=== PATIENT | male | born 1975 | race Caucasian/White ===

== ENCOUNTER 2018-02-20 12:56 | Inpatient (IN) | payer OTHER ==
[~2018-02-20] VITALS: Ht 185.4 cm; Wt 95.0 kg
[2018-02-20 13:15] VITALS: BP 136/85; PULSE 75; RESP 19; TEMP 98.6; O2SAT 95
[2018-02-20] MEDS ORDERED: SODIUM CHLOR 0.9% 1000 ML INJ 1,000 ML IV ONE (13:15)
[2018-02-20] MEDS ORDERED: MORPHINE SULFATE 4 MG/ML INJ IV PUSH ONE (13:15)
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
[2018-02-20] MEDS ORDERED: HYDROmorphone HCL PF 1 MG/ML VIAL IV PUSH ONE (14:30)
[2018-02-20] MEDS ORDERED: HYDROmorphone HCL PF 2 MG/ML VIAL IV PUSH ONE (14:30)
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
[2018-02-20 14:58] LABS: AUTOMATED NEUTROPHIL # 14.8 TH/MM3 (1.8-7.7); BASOPHIL # 0.1 TH/MM3 (0-0.2); BASOPHIL % 0.3 % (0.0-2.0); EOSINOPHIL # 0.1 TH/MM3 (0-0.4); EOSINOPHIL % 0.4 % (0.0-4.0); HEMATOCRIT 40.1 % (39.0-51.0); HEMOGLOBIN 13.7 GM/DL (13.0-17.0); LYMPH % 4.9 % (9.0-44.0); LYMPHOCYTE # 0.8 TH/MM3 (1.0-4.8); MEAN CELL VOLUME 88.5 FL (80.0-100.0); MEAN CORPUSCULAR HEMOGLOBIN 30.3 PG (27.0-34.0); MEAN CORPUSCULAR HGB CONC 34.2 % (32.0-36.0); MEAN PLATELET VOLUME 8.6 FL (7.0-11.0); MONO % 6.9 % (0.0-8.0); MONOCYTE # 1.2 TH/MM3 (0-0.9); NEUT % 87.5 % (16.0-70.0); PLATELET COUNT 212 TH/MM3 (150-450); RED BLOOD COUNT 4.53 MIL/MM3 (4.50-5.90); RED CELL DISTRIBUTION WIDTH 12.4 % (11.6-17.2); WHITE BLOOD COUNT 16.9 TH/MM3 (4.0-11.0)
[2018-02-20 15:14] LABS: BICARBONATE 21.4 MEQ/L (21.0-32.0); CALCIUM 7.8 MG/DL (8.5-10.1); CREATININE 0.82 MG/DL (0.60-1.30)
[2018-02-20 16:08] LABS: INTERNATIONAL NORMALIZED RATIO 1.1 RATIO; PROTHROMBIN TIME - PATIENT 10.9 SEC (9.8-11.6)
[2018-02-20] MEDS ORDERED: NALOXONE HCL 0.4 MG/ML AMP IV PUSH PRN (16:15)
[2018-02-20] MEDS ORDERED: SENNOSIDES 8.6 MG TAB PO PRN (16:15)
[2018-02-20] MEDS ORDERED: LACTULOSE SYRUP 20 GM/30 ML CUP PO PRN (16:15)
[2018-02-20] MEDS ORDERED: MORPHINE SULFATE 2 MG/ML SYRINGE IV PUSH PRN ×2 (16:15)
[2018-02-20] MEDS ORDERED: MAGNESIUM HYDROXIDE SUSP 30 ML CUP PO PRN (16:15)
[2018-02-20] MEDS ORDERED: BISACODYL 10 MG SUPP RECTAL PRN (16:15)
[2018-02-20] MEDS ORDERED: SODIUM CHLORIDE 0.9% FLUSH 10 ML FLUSH IV FLUSH PRN (16:15)
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
[2018-02-20] MEDS: KETOROLAC TROMETHAMINE 30 MG/ML (IVP) VIAL IV PUSH SCH ×2 (16:56→22:15)
[2018-02-20] MEDS: ENOXAPARIN SODIUM 40 MG/0.4 ML SYRINGE SQ SCH (17:00)
--- NOTE | 2018-02-20 17:02 | RADRPT ---
EXAM DATE: 02/20/2018 4:43 PM EDT AGE/SEX: 42 years / Male INDICATIONS: Left leg pain. CLINICAL DATA: This is the patient's initial encounter. Patient reports that signs and symptoms have been present for 1 day and indicates a pain score of 10/10. MEDICAL/SURGICAL HISTORY: None. None. RADIATION DOSE: 17.63 CTDI (mGy) COMPARISON: [facility], HIP LEFT (AP&LAT 2/3VWS) W AP PELVIS, 02/20/2018.. . TECHNIQUE: Multiple contiguous axial images were acquired using a multirow detector CT scanner witho ut contrast. Multiplanar reconstruction was performed in the sagittal and coronal planes. Using aut omated exposure control and adjustment of the mA and/or kV according to patient size, radiation dose was kept as low as reasonably achievable to obtain optimal diagnostic quality images. FINDINGS: There is an acute fracture involving the proximal metaphysis of the left femur just below the intertr ochanteric line. The distal fracture fragment lies medial to the proximal fracture fragment. There is a lucent lesion involving the fracture site. This lucent lesion measures 3 cm in diameter. There is a thin sclerotic margin surrounding this lesion. No cortical destruction observed. No soft tissue mas s appreciated. No periosteal reaction. The remaining femur is intact. No other lucent lesion observed . Soft tissues are unremarkable. CONCLUSION: 1. 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 Electronically signed by: Ciro Casas MD 02/20/2018 5:01 PM EDT
[2018-02-20 17:09] VITALS: BP 118/70; PULSE 66; RESP 18; TEMP 98; O2SAT 96
[2018-02-20] MEDS: SODIUM CHLOR 0.9% 1000 ML INJ 1,000 ML IV SCH (17:34)
[2018-02-20 19:20] VITALS: BP 125/69; PULSE 82; RESP 18; TEMP 98; O2SAT 95
[2018-02-20] MEDS: HYDROmorphone HCL PF 2 MG/ML VIAL IV PUSH PRN (20:11)
[2018-02-20] MEDS: DOCUSATE SODIUM 50 MG/SENNA 8.6 MG TAB PO SCH (20:17)
[2018-02-20] MEDS: SODIUM CHLORIDE 0.9% FLUSH 10 ML FLUSH IV FLUSH SCH (20:17)
[2018-02-20] MEDS ORDERED: SODIUM CHLORID 0.9% 500 ML IV PRN (21:45)
[2018-02-20] MEDS ORDERED: LACTATED RINGER'S 1000 ML IV PRN (21:45)
[2018-02-20] MEDS ORDERED: POVIDONE IODINE 5% (ANTISEPSIS KIT) 4 APPLICATIONS EACH NARE PRN (21:45)
[2018-02-20] MEDS ORDERED: CHLORHEXIDINE GLUCONATE 2 % 1 PACK (2 CLOTHS) TOPICAL PRN (21:45)
[2018-02-20 23:30] VITALS: BP 124/63; PULSE 71; RESP 18; TEMP 98.1; O2SAT 95
[2018-02-21] MEDS: MORPHINE SULFATE 4 MG/ML INJ IV PUSH PRN ×5 (02:12→20:02)
[2018-02-21] MEDS: SODIUM CHLOR 0.9% 1000 ML INJ 1,000 ML IV SCH ×3 (02:12→22:04)
[2018-02-21 03:35] VITALS: BP 114/62; PULSE 70; RESP 18; TEMP 97.8; O2SAT 95
[2018-02-21] MEDS: KETOROLAC TROMETHAMINE 30 MG/ML (IVP) VIAL IV PUSH SCH ×4 (04:42→23:58)
[2018-02-21 08:00] VITALS: BP 117/75; PULSE 62; RESP 18; TEMP 98.2; O2SAT 96
[2018-02-21] MEDS: DOCUSATE SODIUM 50 MG/SENNA 8.6 MG TAB PO SCH ×2 (09:00→21:00)
[2018-02-21] MEDS: SODIUM CHLORIDE 0.9% FLUSH 10 ML FLUSH IV FLUSH SCH (09:00)
--- NOTE | 2018-02-21 11:31 | OTSOAPIP ---
RECEIVED OCCUPATIONAL THERAPY ORDERS. PATIENT CURRENTLY ON BED REST, LEFT LOWER EXTREMITY IN JEFFERS'S TRACTION. PATIENT IS UNDERGOING SURGERY THIS DATE. WILL HOLD EVALUATION UNTIL S/P SURGERY. WILL REATTEMPT TOMORROW. INTERDISCIPLINARY COMMUNICATION: REVIEWED ELECTRONIC MEDICAL RECORD Therapist: Sharon Mcclure, OTR/L Signature on file
[2018-02-21] MEDS ORDERED: MIDAZOLAM HCL 2 MG/2 ML VIAL ONE (11:52)
[2018-02-21 12:50] VITALS: BP 116/62; PULSE 71; RESP 18; TEMP 98; O2SAT 93
[2018-02-21 13:05] VITALS: BP 120/71; PULSE 58; RESP 20; O2SAT 98
--- NOTE | 2018-02-21 13:09 | RADRPT ---
EXAM DATE: 02/21/2018 12:41 PM EDT AGE/SEX: 42 years / Male INDICATIONS: Left femur pathologic fracture. CLINICAL DATA: This is the patient's initial encounter. Patient reports that signs and symptoms have been present for 1 day and indicates a pain score of 4/10. MEDICAL/SURGICAL HISTORY: None. None. COMPARISON: No prior exams available for comparison. SEDATION TIME (min): 30 BIOPSY SITE: Left bone deep left proximal femur 4mg midazolam (Versed) IV 200mcg fentanyl (Sublimaze) IV DEVICE(S): 16 gauge Temno core biopsy needle One core specimen(s) sent to the laboratory for pathologic evaluation. . . PROCEDURE: CT guided Left bone deep proximal femur biopsy Prior to the procedure informed consent was obtained. Any appropriate prior imaging studies were rev iewed. Using automated exposure control and adjustment of the mA and/or kV according to patient size, radiat ion dose was kept as low as reasonably achievable to obtain optimal diagnostic quality images. DICOM format image data is available electronically for review and comparison. The site was prepped in a sterile fashion. Full sterile technique was used, including cap, mask, nohelia rile gloves and gown and a large sterile sheet. Hand hygiene and 2% chlorhexidine and/or betadine/al cohol prep was utilized per protocol for cutaneous antisepsis. The skin and subcutaneous tissues wer e infiltrated with local anesthetic solution. With CT guidance the previously identified target was localized. Biopsy was performed using the presc ribed needle as above. Adequate hemostasis was obtained with compression at the puncture site. Follow-up CT scan reveals no hemorrhage. The patient tolerated the procedure well and there were no complications. The patient was returned to the Radiology Outpatient Unit in stable condition. FINDINGS: Successful CT-guided 16-gauge core biopsy of the left proximal femoral lytic lesion as described abov e. CONCLUSION: 1. Successful CT guided 16-gauge core biopsy of the left proximal femoral lytic lesion. Electronically signed by: Aldo Chicas MD 02/21/2018 1:08 PM EDT
--- NOTE | 2018-02-21 14:05 | HHI.FPPN ---
Subjective Remarks Patient seen, examined and discussed with the medicine team. He is much more comfortable with traction in place, discomfort with moving but otherwise having difficulty because he is not used to being in bed all the time. is with him, and some people who were staying at [place] resort and help him and his yesterday were touching base. Clarification of the plan, there will be a bone biopsy obtained by interventional radiology first prior to any orthopedic surgery for his femur fracture. This has been completed, pathology pending. Objective Vitals Vital Signs Date Time Temp Pulse Resp B/P (MAP) Pulse Ox O2 Delivery O2 Flow Rate FiO2 02/21/18 12:50 98.0 71 18 116/62 (80) 93 02/21/18 08:00 98.2 62 18 117/75 (89) 96 02/21/18 03:35 97.8 70 18 114/62 (79) 95 02/20/18 23:30 98.1 71 18 124/63 (83) 95 02/20/18 19:20 98.0 82 18 125/69 (87) 95 02/20/18 17:09 98.0 66 18 118/70 (86) 96 I/O 02/20/18 02/20/18 02/20/18 02/21/18 02/21/18 02/21/18 07:00 15:00 23:00 07:00 15:00 23:00 Intake Total 1000 ml 1899 ml Balance 1000 ml 1899 ml Intake Oral 1000 ml IV Total 1000 ml 899 ml # Voids 2 Result Diagram: 02/20/18 1442 02/20/18 1442 Other Results CBC Diagram 02/20/18 14:42 Imaging Last Impressions Bone Biopsy CT 02/21/18 0000 Signed Impressions: CONCLUSION: 1. Successful CT guided 16-gauge core biopsy of the left proximal femoral lyti c lesion. Lower Extremity CT 02/20/18 0000 Signed Impressions: CONCLUSION: 1. 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 Hip and Pelvis X-Ray 02/20/18 0000 Signed Impressions: CONCLUSION: Subtrochanteric fracture of the left femoral shaft with suspected underlying cy stic or lytic lesion indicative of a potential pathologic fracture. Objective Remarks O. CONSTITUTIONAL/GEN: normally nourished, in NAD. Left lower extremity in traction. EYES: conjunctiva normal, PERRLA, EOMI. ENT: Mouth and pharynx normal. NECK: Supple LUNGS: clear A-P, respiratory effort is normal. CARDIOVASCULAR: RR without murmur or gallop. No significant edema. GI/ABD: soft without masses, without organomegaly. NEURO: No focal deficits. SKIN: color normal, no rashes noted. HEME/LYMPH: no bruising, petechia or significant adenopathy MUSC: Toes are warm and sensation is intact on the left. PSYCH/MENTAL STATUS: Alert and oriented x 3. A/P Assessment and Plan 42-year-old male with no major past medical history presenting with: Attending Attestation Patient seen and examined. Case reviewed and discussed with the resident team. Agree with plan of care as discussed with me and documented in the resident note. Problem List: (1) Subtrochanteric fracture of femur ICD Codes: S72.23XA - Displaced subtrochanteric fracture of unspecified femur, initial encounter for closed fracture Status: Acute Plan: X-ray showing subtrochanteric fracture of the femur, no clear history of trauma WBC slightly elevated with neutrophilia, could be stress response -Consulted orthopedics, appreciate assistance -Traction of left lower extremity -To evaluate for surgery -bone biopsy today prior to surgery to rule out pathology that would explain the fracture in a young otherwise healthy patient -Check peripheral smear to rule out leukemia as etiology of fracture -N.p.o. until surgical evaluation -Pain control with Toradol scheduled, morphine for pain scale as needed, Dilaudid as needed for breakthrough Fluids: Normal saline 100 cc/h Electrolytes: Monitor and replace PRN Nutrition: Diet n.p.o. DVT: Lovenox 40 mg daily CODE STATUS: Full code Seen and discussed with Drs. Silver and Connie. Disposition: Admit to inpatient, anticipate discharge in 1-2 days pending surgery. Will likely need assistance arranging follow-up when he goes back home to [place]. Problem Qualifiers (1) Subtrochanteric fracture of femur: Baylee Samaniego MD Feb 21, 2018 14:05
[2018-02-21 16:00] VITALS: BP 158/70; PULSE 77; RESP 16; TEMP 98.8; O2SAT 96
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
[2018-02-21] MEDS: ENOXAPARIN SODIUM 40 MG/0.4 ML SYRINGE SQ SCH (18:09)
[2018-02-21 19:30] VITALS: BP 117/51; PULSE 73; RESP 20; TEMP 98.3; O2SAT 95
[2018-02-22 00:20] VITALS: BP 118/69; PULSE 65; RESP 20; TEMP 98.2; O2SAT 95
[2018-02-22 03:50] VITALS: BP 101/55; PULSE 69; RESP 20; TEMP 98.1; O2SAT 95
[2018-02-22] MEDS: KETOROLAC TROMETHAMINE 30 MG/ML (IVP) VIAL IV PUSH SCH ×4 (04:15→21:46)
[2018-02-22 08:00] VITALS: BP 116/56; PULSE 65; RESP 17; TEMP 97.8; O2SAT 95
--- NOTE | 2018-02-22 08:13 | PD.ORT.PN ---
Subjective Subjective Remarks pain under control. Objective Vitals Vital Signs Date Time Temp Pulse Resp B/P (MAP) Pulse Ox O2 Delivery O2 Flow Rate FiO2 02/22/18 03:50 98.1 69 20 101/55 (70) 95 02/22/18 00:20 98.2 65 20 118/69 (85) 95 02/21/18 19:30 98.3 73 20 117/51 (73) 95 02/21/18 17:48 16 02/21/18 16:00 98.8 77 16 158/70 (99) 96 02/21/18 15:28 16 02/21/18 13:05 58 20 120/71 (87) 98 02/21/18 12:50 98.0 71 18 116/62 (80) 93 I/O 02/21/18 02/21/18 02/21/18 02/22/18 02/22/18 02/22/18 07:00 15:00 23:00 07:00 15:00 23:00 Intake Total 1899 ml 1000 ml 30 ml Output Total 250 ml Balance 1899 ml 1000 ml -220 ml Intake Oral 1000 ml 30 ml IV Total 899 ml 1000 ml Output Urine Total 250 ml # Voids 2 Result Diagram: 02/20/18 1442 02/20/18 1442 Objective Remarks in bed, nad, traction in place thigh soft neg homans nvi Assessment & Plan Assessment and Plan 42-year-old gentleman with no significant past medical history with pathologic left subtrochanteric femur fracture Radiographs and CT reviewed with the patient. I explained to the patient my concern regarding his pathologic femur fracture. I did explain to the patient that most of the features of the lesion do appear benign, however, I would like to ensure that this is not a malignancy prior to fixing his femur. I discussed with interventional radiology the option of a CT-guided biopsy of the lytic lesion. This has been performed today as the patient was already n.p.o. We will await these results. Should the biopsy be negative for malignancy, he would benefit from intramedullary nail of his left subtrochanteric femur fracture. However, I did discuss with the patient that should there be suspicion or verification of malignancy, he would likely need to be transferred to a oncology center for definitive treatment. He will remain in Kraft's traction at this time. I did discuss with the patient that it can take a couple of days for pathology results to return. Patient will be placed on Lovenox for DVT prophylaxis. awaiting pathology results Kamran Quan Feb 22, 2018 08:13
[2018-02-22] MEDS: MORPHINE SULFATE 4 MG/ML INJ IV PUSH PRN ×4 (10:19→21:45)
[2018-02-22] MEDS: DOCUSATE SODIUM 50 MG/SENNA 8.6 MG TAB PO SCH ×2 (10:25→21:45)
[2018-02-22] MEDS: SODIUM CHLORIDE 0.9% FLUSH 10 ML FLUSH IV FLUSH SCH ×3 (10:27→21:46)
[2018-02-22] MEDS: SODIUM CHLOR 0.9% 1000 ML INJ 1,000 ML IV SCH ×2 (10:29→18:04)
--- NOTE | 2018-02-22 10:48 | OTSOAPIP ---
PATIENT DID NOT HAVE SURGICAL INTERVENTION YESTERDAY. PATIENT IS S/P CT-GUIDED BIOPSY OF THE LYTIC LESION. LEFT LOWER EXTREMITY REMAINS IN JEFFERS'S TRACTION AWAITING PATHOLOGY RESULT. WILL CONTINUE TO HOLD EVALUATION. WILL REATTEMPT TOMORROW. INTERDISCIPLINARY COMMUNICATION: REVIEWED ELECTRONIC MEDICAL RECORD, SPOKE WITH NURSE GARCIA Therapist: Sharon Mcclure, OTR/L Signature on file
[2018-02-22 12:00] VITALS: BP 115/64; PULSE 63; RESP 18; TEMP 97.9; O2SAT 98
[2018-02-22 13:15] LABS: AUTOMATED NEUTROPHIL # 3.6 TH/MM3 (1.8-7.7); BASOPHIL % 0.6 % (0.0-2.0); EOSINOPHIL # 0.2 TH/MM3 (0-0.4); EOSINOPHIL % 3.3 % (0.0-4.0); HEMATOCRIT 36.9 % (39.0-51.0); HEMOGLOBIN 12.8 GM/DL (13.0-17.0); LYMPH % 23.2 % (9.0-44.0); LYMPHOCYTE # 1.4 TH/MM3 (1.0-4.8); MEAN CELL VOLUME 88.9 FL (80.0-100.0); MEAN CORPUSCULAR HEMOGLOBIN 30.8 PG (27.0-34.0); MEAN CORPUSCULAR HGB CONC 34.7 % (32.0-36.0); MEAN PLATELET VOLUME 8.2 FL (7.0-11.0); MONO % 13.5 % (0.0-8.0); MONOCYTE # 0.8 TH/MM3 (0-0.9); NEUT % 59.4 % (16.0-70.0); PLATELET COUNT 205 TH/MM3 (150-450); RED BLOOD COUNT 4.15 MIL/MM3 (4.50-5.90); RED CELL DISTRIBUTION WIDTH 12.6 % (11.6-17.2); WHITE BLOOD COUNT 6.1 TH/MM3 (4.0-11.0)
--- NOTE | 2018-02-22 14:39 | HHI.FPPN ---
Subjective Remarks 42 yo male with non-traumatic L hip fracture being seen for f/u. Pain well controlled. No numbness of left let. No CP/SOB. (Warren Silver MD R2) Objective Vitals Vital Signs Date Time Temp Pulse Resp B/P (MAP) Pulse Ox O2 Delivery O2 Flow Rate FiO2 02/22/18 12:00 97.9 63 18 115/64 (81) 98 02/22/18 08:00 97.8 65 17 116/56 (76) 95 02/22/18 03:50 98.1 69 20 101/55 (70) 95 02/22/18 00:20 98.2 65 20 118/69 (85) 95 02/21/18 19:30 98.3 73 20 117/51 (73) 95 02/21/18 17:48 16 02/21/18 16:00 98.8 77 16 158/70 (99) 96 02/21/18 15:28 16 I/O 02/21/18 02/21/18 02/21/18 02/22/18 02/22/18 02/22/18 07:00 15:00 23:00 07:00 15:00 23:00 Intake Total 1899 ml 1000 ml 30 ml Output Total 250 ml Balance 1899 ml 1000 ml -220 ml Intake Oral 1000 ml 30 ml IV Total 899 ml 1000 ml Output Urine Total 250 ml # Voids 2 (Warren Silver MD R2) Result Diagram: 02/22/18 1254 02/20/18 1442 Imaging Last Impressions Bone Biopsy CT 02/21/18 0000 Signed Impressions: CONCLUSION: 1. Successful CT guided 16-gauge core biopsy of the left proximal femoral lyti c lesion. Lower Extremity CT 02/20/18 0000 Signed Impressions: CONCLUSION: 1. 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 Hip and Pelvis X-Ray 02/20/18 0000 Signed Impressions: CONCLUSION: Subtrochanteric fracture of the left femoral shaft with suspected underlying cy stic or lytic lesion indicative of a potential pathologic fracture. Objective Remarks O. CONSTITUTIONAL/GEN: normally nourished, in NAD. Left lower extremity in traction. LUNGS: Clear anteriorly, respiratory effort is normal. CARDIOVASCULAR: NRRR without murmur or gallop. No edema. GI/ABD: soft without masses, without organomegaly. NEURO: No focal deficits. SKIN: color normal, no rashes noted. MUSC: Toes are warm and sensation is intact on the left. PSYCH/MENTAL STATUS: Alert and oriented x 3. Procedures CT guided bone biopsy - 02/21/18 Medications and IVs Current Medications Medications (Trade) Dose Ordered Sig/Christi Route Start Time Stop Time Status Last Admin Sodium Chloride 1,000 ml @ 100 mls/hr Q10H IV 02/20/18 16:04 02/22/18 10:29 (NS Flush) 2 ml UNSCH PRN IV FLUSH 02/20/18 16:15 (NS Flush) 2 ml BID IV FLUSH 02/20/18 21:00 02/22/18 10:27 (Lovenox Inj) 40 mg Q24H SQ 02/20/18 17:00 02/21/18 18:09 (Toradol Inj) 30 mg Q6H IV PUSH 02/20/18 16:15 02/25/18 16:14 02/22/18 10:18 (Narcan Inj) 0.4 mg UNSCH PRN IV PUSH 02/20/18 16:15 (Angela-Colace) 1 tab BID PO 02/20/18 21:00 02/22/18 10:25 (Milk Of Magnesia Liq) 30 ml Q12H PRN PO 02/20/18 16:15 (Senokot) 17.2 mg Q12H PRN PO 02/20/18 16:15 (Dulcolax Supp) 10 mg DAILY PRN RECTAL 02/20/18 16:15 (Lactulose Liq) 30 ml DAILY PRN PO 02/20/18 16:15 (Dilaudid Pf Inj) 1 mg Q4H PRN IV PUSH 02/20/18 16:30 02/20/18 20:11 (Morphine Inj) 2 mg Q3H PRN IV PUSH 02/20/18 20:30 02/22/18 13:35 (Morphine Inj) 4 mg Q3H PRN IV PUSH 02/20/18 20:30 02/21/18 15:06 Lactated Ringer's 1,000 ml @ 30 mls/hr Q24H PRN IV 02/20/18 21:45 02/23/18 21:44 Sodium Chloride 500 ml @ 30 mls/hr [id number] PRN IV 02/20/18 21:45 02/23/18 21:44 (Betadine 5% Antisepsis Kit) 1 applic DAY CARE CENTER DIRECTOR PRN EACH NARE 02/20/18 21:45 02/23/18 21:44 (Chlorhexidine 2% Cloth) 3 pack DAY CARE CENTER DIRECTOR PRN TOPICAL 02/20/18 21:45 02/23/18 21:44 (Warren Silver MD R2) A/P Assessment and Plan 42-year-old male with no major past medical history presenting with: (Warren Sivler MD R2) Problem List: (1) Subtrochanteric fracture of femur ICD Codes: S72.23XA - Displaced subtrochanteric fracture of unspecified femur, initial encounter for closed fracture Status: Acute Plan: X-ray showing subtrochanteric fracture of the femur, no clear history of trauma WBC slightly elevated with neutrophilia, could be stress response Peripheral smear consistent with reactive changes -Consulted orthopedics, appreciate assistance -Traction of left lower extremity -Awaiting biopsy results, surgical plan pending final diagnosis -Repeat CBC to confirm resolving leukocytosis -Pain control with Toradol scheduled, morphine for pain scale as needed, Dilaudid as needed for breakthrough Fluids: PO only at the moment Electrolytes: Monitor and replace PRN Nutrition: Diet regular until operative plan known DVT: Lovenox 40 mg daily CODE STATUS: Full code Seen and discussed with Drs. Silver and Connie. Disposition: Admit to inpatient, anticipate discharge in 1-2 days pending surgery. Will likely need assistance arranging follow-up when he goes back home to [place]. (Warren Silver MD R2) Problem List: (1) Subtrochanteric fracture of femur ICD Codes: S72.23XA - Displaced subtrochanteric fracture of unspecified femur, initial encounter for closed fracture Status: Acute Plan: X-ray showing subtrochanteric fracture of the femur, no clear history of trauma WBC slightly elevated with neutrophilia, could be stress response Peripheral smear consistent with reactive changes -Consulted orthopedics, appreciate assistance -Traction of left lower extremity -Awaiting biopsy results, surgical plan pending final diagnosis -Repeat CBC to confirm resolving leukocytosis -Pain control with Toradol scheduled, morphine for pain scale as needed, Dilaudid as needed for breakthrough Fluids: PO only at the moment Electrolytes: Monitor and replace PRN Nutrition: Diet regular until operative plan known DVT: Lovenox 40 mg daily CODE STATUS: Full code Disposition: Admit to inpatient, anticipate discharge in 1-2 days pending surgery. Will likely need assistance arranging follow-up when he goes back home to [place]. (Baylee Samaniego MD) Problem Qualifiers (1) Subtrochanteric fracture of femur: Warren Silver MD R2 Feb 22, 2018 14:39 Baylee Samaniego MD Feb 22, 2018 16:09
[2018-02-22 16:11] VITALS: BP 121/74; PULSE 73; RESP 18; TEMP 98.2; O2SAT 96
[2018-02-22] MEDS: ENOXAPARIN SODIUM 40 MG/0.4 ML SYRINGE SQ SCH (16:53)
[2018-02-22 20:00] VITALS: BP 135/75; PULSE 66; RESP 16; TEMP 98.2; O2SAT 96
[2018-02-23 00:01] VITALS: BP 111/65; PULSE 65; RESP 16; TEMP 98.3; O2SAT 97
[2018-02-23 04:00] VITALS: BP 111/65; PULSE 66; RESP 16; TEMP 97.8; O2SAT 96
[2018-02-23] MEDS: KETOROLAC TROMETHAMINE 30 MG/ML (IVP) VIAL IV PUSH SCH ×4 (04:04→21:50)
[2018-02-23] MEDS: SODIUM CHLOR 0.9% 1000 ML INJ 1,000 ML IV SCH ×2 (04:04→14:04)
[2018-02-23] MEDS: MORPHINE SULFATE 4 MG/ML INJ IV PUSH PRN ×5 (04:09→21:56)
[2018-02-23 08:09] VITALS: BP 105/51; PULSE 66; RESP 18; TEMP 98; O2SAT 96
[2018-02-23] MEDS: DOCUSATE SODIUM 50 MG/SENNA 8.6 MG TAB PO SCH ×2 (09:01→21:56)
[2018-02-23] MEDS: SODIUM CHLORIDE 0.9% FLUSH 10 ML FLUSH IV FLUSH SCH ×2 (09:04→21:57)
--- NOTE | 2018-02-23 10:38 | PD.ORT.PN ---
Subjective Subjective Remarks pain under control. waiting for biopsy results. Objective Vitals Vital Signs Date Time Temp Pulse Resp B/P (MAP) Pulse Ox O2 Delivery O2 Flow Rate FiO2 02/23/18 08:09 98.0 66 18 105/51 (69) 96 02/23/18 04:14 18 02/23/18 04:00 97.8 66 16 111/65 (80) 96 02/23/18 00:01 98.3 65 16 111/65 (80) 97 02/22/18 20:00 98.2 66 16 135/75 (95) 96 02/22/18 16:11 98.2 73 18 121/74 (90) 96 02/22/18 12:00 97.9 63 18 115/64 (81) 98 I/O 02/22/18 02/22/18 02/22/18 02/23/18 02/23/18 02/23/18 07:00 15:00 23:00 07:00 15:00 23:00 Intake Total 30 ml 1300 ml Output Total 250 ml Balance -220 ml 1300 ml Intake Oral 30 ml 1300 ml Output Urine Total 250 ml # Voids 4 3 # Bowel Movements 0 Result Diagram: 02/22/18 1254 02/20/18 1442 Objective Remarks in bed, nad, traction in place thigh soft neg homans nvi Assessment & Plan Assessment and Plan 42-year-old gentleman with no significant past medical history with pathologic left subtrochanteric femur fracture Radiographs and CT reviewed with the patient. I explained to the patient my concern regarding his pathologic femur fracture. I did explain to the patient that most of the features of the lesion do appear benign, however, I would like to ensure that this is not a malignancy prior to fixing his femur. I discussed with interventional radiology the option of a CT-guided biopsy of the lytic lesion. This has been performed today as the patient was already n.p.o. We will await these results. Should the biopsy be negative for malignancy, he would benefit from intramedullary nail of his left subtrochanteric femur fracture. However, I did discuss with the patient that should there be suspicion or verification of malignancy, he would likely need to be transferred to a oncology center for definitive treatment. He will remain in Kraft's traction at this time. I did discuss with the patient that it can take a couple of days for pathology results to return. Patient will be placed on Lovenox for DVT prophylaxis. awaiting pathology results otherwise doing well. Kamran Quan Feb 23, 2018 10:38
--- NOTE | 2018-02-23 10:54 | HHI.FPPN ---
Subjective Remarks Vitals stable. Patient doing well, minimal pain. Passing gas. No bowel movement since admission. Patient states that he usually has bowel movements every 3-4 days. Problems with appetite. Request to know when biopsy results will be in. Objective Vitals Vital Signs Date Time Temp Pulse Resp B/P (MAP) Pulse Ox O2 Delivery O2 Flow Rate FiO2 02/23/18 08:09 98.0 66 18 105/51 (69) 96 02/23/18 04:14 18 02/23/18 04:00 97.8 66 16 111/65 (80) 96 02/23/18 00:01 98.3 65 16 111/65 (80) 97 02/22/18 20:00 98.2 66 16 135/75 (95) 96 02/22/18 16:11 98.2 73 18 121/74 (90) 96 02/22/18 12:00 97.9 63 18 115/64 (81) 98 I/O 02/22/18 02/22/18 02/22/18 02/23/18 02/23/18 02/23/18 07:00 15:00 23:00 07:00 15:00 23:00 Intake Total 30 ml 1300 ml Output Total 250 ml Balance -220 ml 1300 ml Intake Oral 30 ml 1300 ml Output Urine Total 250 ml # Voids 4 3 # Bowel Movements 0 Result Diagram: 02/22/18 1254 02/20/18 1442 Objective Remarks O. CONSTITUTIONAL/GEN: normally nourished, in NAD. Left lower extremity in traction. Trapeze set up situated about the bed. LUNGS: Clear anteriorly, respiratory effort is normal. CARDIOVASCULAR: NRRR without murmur or gallop. No edema. GI/ABD: soft without masses, without organomegaly. NEURO: No focal deficits. SKIN: color normal, no rashes noted. MUSC: Toes are warm and sensation is intact on the left. Left hip significantly swollen and enlarged compared to right. PSYCH/MENTAL STATUS: Alert and oriented x 3. Procedures CT guided bone biopsy - 02/21/18 A/P Assessment and Plan 42-year-old male with no major past medical history presenting with: Discharge Planning Pending bx results and ortho recs Problem List: (1) Subtrochanteric fracture of femur ICD Codes: S72.23XA - Displaced subtrochanteric fracture of unspecified femur, initial encounter for closed fracture Status: Acute Plan: X-ray showing subtrochanteric fracture of the femur, no clear history of trauma WBC slightly elevated with neutrophilia, could be stress response Peripheral smear consistent with reactive changes -Consulted orthopedics, appreciate assistance -Traction of left lower extremity -Awaiting biopsy results, surgical plan pending final diagnosis -Pain control with Toradol scheduled, morphine for pain scale as needed, Dilaudid as needed for breakthrough Fluids: PO only at the moment Electrolytes: Monitor and replace PRN Nutrition: Diet regular until operative plan known DVT: Lovenox 40 mg daily Disposition: Admit to inpatient, anticipate discharge in 1-2 days pending surgery. Will likely need assistance arranging follow-up when he goes back home to [place]. Problem Qualifiers (1) Subtrochanteric fracture of femur: Malorie Rosales MD R1 Feb 23, 2018 10:54
[2018-02-23 12:21] VITALS: BP 114/64; PULSE 68; RESP 17; TEMP 98.4; O2SAT 96
[2018-02-23 15:55] VITALS: BP 109/69; PULSE 66; RESP 18; TEMP 98.4; O2SAT 97
[2018-02-23] MEDS: ENOXAPARIN SODIUM 40 MG/0.4 ML SYRINGE SQ SCH (17:40)
[2018-02-23 20:00] VITALS: BP 134/77; PULSE 75; RESP 17; TEMP 97.9; O2SAT 97
[2018-02-24 00:01] VITALS: BP 129/80; PULSE 54; RESP 16; TEMP 97.5; O2SAT 97
[2018-02-24] MEDS: SODIUM CHLOR 0.9% 1000 ML INJ 1,000 ML IV SCH ×3 (00:04→22:03)
[2018-02-24 04:00] VITALS: BP 121/65; PULSE 56; RESP 17; TEMP 97.8; O2SAT 97
[2018-02-24] MEDS: KETOROLAC TROMETHAMINE 30 MG/ML (IVP) VIAL IV PUSH SCH ×5 (04:11→22:02)
[2018-02-24 08:00] VITALS: BP 121/71; PULSE 61; RESP 10; TEMP 97.8; O2SAT 96
[2018-02-24] MEDS: DOCUSATE SODIUM 50 MG/SENNA 8.6 MG TAB PO SCH ×2 (08:09→20:40)
[2018-02-24] MEDS: MORPHINE SULFATE 4 MG/ML INJ IV PUSH PRN ×4 (08:09→17:18)
[2018-02-24] MEDS: SODIUM CHLORIDE 0.9% FLUSH 10 ML FLUSH IV FLUSH SCH ×2 (09:00→20:38)
--- NOTE | 2018-02-24 09:37 | HHI.FPPN ---
Subjective Remarks Vitals stable. Pain controlled. Bone bx report to result this afternoon. (Malorie Rosales MD R1) Objective Vitals Vital Signs Date Time Temp Pulse Resp B/P (MAP) Pulse Ox O2 Delivery O2 Flow Rate FiO2 02/24/18 08:00 97.8 61 10 121/71 (88) 96 02/24/18 04:00 97.8 56 17 121/65 (83) 97 02/24/18 00:01 97.5 54 16 129/80 (96) 97 02/23/18 20:00 97.9 75 17 134/77 (96) 97 02/23/18 15:55 98.4 66 18 109/69 (82) 97 02/23/18 12:21 98.4 68 17 114/64 (81) 96 I/O 02/23/18 02/23/18 02/23/18 02/24/18 02/24/18 02/24/18 07:00 15:00 23:00 07:00 15:00 23:00 Intake Total 1200 ml Balance 1200 ml Intake Oral 1200 ml # Voids 3 3 3 # Bowel Movements 0 (Malorie Rosales MD R1) Result Diagram: 02/22/18 1254 02/20/18 1442 Objective Remarks O. CONSTITUTIONAL/GEN: normally nourished, in NAD. Left lower extremity in traction. Trapeze set up situated about the bed. LUNGS: Clear anteriorly, respiratory effort is normal. CARDIOVASCULAR: NRRR without murmur or gallop. No edema. GI/ABD: soft without masses, without organomegaly. NEURO: No focal deficits. SKIN: color normal, no rashes noted. MUSC: Toes are warm and sensation is intact on the left. Able to move toes. Good cap refill. Left hip significantly swollen and enlarged compared to right. PSYCH/MENTAL STATUS: Alert and oriented x 3. Procedures CT guided bone biopsy - 02/21/18 (Malorie Rosales MD R1) A/P Assessment and Plan 42-year-old male with no major past medical history presenting with: Discharge Planning Pending bx results and ortho recs. Bone bx results to be out this afternoon, will touch base w/pathology to make sure. DC back home to [place]. (Malorie Rosales MD R1) Attending Attestation Patient seen and examined. Case reviewed and discussed with the resident team. Agree with plan of care as discussed with me and documented in the resident note. (Baylee Samaniego MD) Problem List: (1) Subtrochanteric fracture of femur ICD Codes: S72.23XA - Displaced subtrochanteric fracture of unspecified femur, initial encounter for closed fracture Status: Acute Plan: X-ray showing subtrochanteric fracture of the femur, no clear history of trauma -Consulted orthopedics, appreciate assistance -Traction of left lower extremity -Awaiting biopsy results, surgical plan pending final diagnosis -Pain control with Toradol scheduled, morphine for pain scale as needed, Dilaudid as needed for breakthrough Fluids: PO only at the moment Electrolytes: Monitor and replace PRN Nutrition: Diet regular until operative plan known DVT: Lovenox 40 mg daily (Malorie Rosales MD R1) Problem Qualifiers (1) Subtrochanteric fracture of femur: Malorie Rosales MD R1 Feb 24, 2018 09:37 Baylee Samaniego MD Feb 24, 2018 10:22
[2018-02-24 12:00] VITALS: BP 135/85; PULSE 65; RESP 12; TEMP 98.3; O2SAT 100
[2018-02-24] MEDS: ENOXAPARIN SODIUM 40 MG/0.4 ML SYRINGE SQ SCH (15:07)
[2018-02-24 16:00] VITALS: BP 133/91; PULSE 70; RESP 12; TEMP 98; O2SAT 100
[2018-02-24 19:40] VITALS: BP 142/89; PULSE 66; RESP 18; TEMP 97.6; O2SAT 97
[2018-02-24] MEDS: HYDROmorphone HCL PF 2 MG/ML VIAL IV PUSH PRN (20:38)
[2018-02-25] VITALS: BP 115/77; PULSE 56; RESP 18; TEMP 97.1; O2SAT 96
[2018-02-25] MEDS: KETOROLAC TROMETHAMINE 30 MG/ML (IVP) VIAL IV PUSH SCH ×2 (03:40→11:12)
[2018-02-25 03:45] VITALS: BP 120/80; PULSE 56; RESP 18; TEMP 97.8; O2SAT 98
[2018-02-25] MEDS: SODIUM CHLOR 0.9% 1000 ML INJ 1,000 ML IV SCH ×2 (06:04→16:04)
[2018-02-25 08:00] VITALS: BP 153/94; PULSE 79; RESP 16; RESP 18; TEMP 98; O2SAT 96
[2018-02-25] MEDS: HYDROmorphone HCL PF 2 MG/ML VIAL IV PUSH PRN ×3 (08:47→17:13)
--- NOTE | 2018-02-25 08:55 | PD.ORT.PN ---
Subjective Subjective Remarks Patient resting comfortably this morning. Remains in Kraft's traction. Objective Vitals Vital Signs Date Time Temp Pulse Resp B/P (MAP) Pulse Ox O2 Delivery O2 Flow Rate FiO2 02/25/18 08:00 98.0 79 18 153/94 (113) 96 02/25/18 03:45 97.8 56 18 120/80 (93) 98 02/25/18 00:00 97.1 56 18 115/77 (90) 96 02/24/18 19:40 97.6 66 18 142/89 (106) 97 02/24/18 16:00 98.0 70 12 133/91 (105) 100 02/24/18 12:00 98.3 65 12 135/85 (102) 100 I/O 02/24/18 02/24/18 02/24/18 02/25/18 02/25/18 02/25/18 07:00 15:00 23:00 07:00 15:00 23:00 Intake Total 960 ml 420 ml Output Total 800 ml Balance 160 ml 420 ml Intake Oral 960 ml 420 ml Output Urine Total 800 ml # Voids 3 2 Result Diagram: 02/22/18 1254 Objective Remarks in bed, nad, traction in place thigh soft neg homans nvi Assessment & Plan Assessment and Plan 42-year-old gentleman with no significant past medical history with pathologic left subtrochanteric femur fracture CT-guided biopsy results to moderate no evidence of malignancy. At this time would recommend operative intervention for his left pathologic femur fracture. Plan for intramedullary nail later today. Risks of surgery including but not limited to: Infection, nonunion or malunion, hardware malposition or failure, persistent hip and or thigh pain, neurovascular injury, possible need for further surgery, and other unforeseen comp occasions were all discussed with the patient. At this time he has consented to the procedure. Patient is n.p.o. for surgery later today. Carlie Winslow MD Feb 25, 2018 08:55
[2018-02-25] MEDS: DOCUSATE SODIUM 50 MG/SENNA 8.6 MG TAB PO SCH ×2 (09:00→21:00)
[2018-02-25] MEDS: SODIUM CHLORIDE 0.9% FLUSH 10 ML FLUSH IV FLUSH SCH (09:00)
[2018-02-25 12:00] VITALS: BP 125/80; PULSE 81; RESP 19; TEMP 98.3; O2SAT 98
[2018-02-25] MEDS ORDERED: ePHEDrine/NS 25 MG/5 ML SYRINGE IV ONE (12:00)
[2018-02-25] MEDS ORDERED: LACTATED RINGER'S 1000 ML INJ 1,000 ML IV ONE (12:00)
[2018-02-25] MEDS ORDERED: LIDOCAINE HCL 1% PF 5 ML SYRINGE OTHER ONE (12:00)
[2018-02-25] MEDS ORDERED: PROPOFOL 200 MG/20 ML AMP IV ONE (12:00)
[2018-02-25] MEDS ORDERED: GLYCOPYRROLATE 1 MG/5 ML SYRINGE IV PUSH ONE (12:00)
[2018-02-25] MEDS ORDERED: ONDANSETRON HCL 4 MG/2 ML VIAL IV ONE (12:00)
[2018-02-25] MEDS ORDERED: DEXAMETHASONE SOD PHOS 4 MG/ML VIAL IV ONE (12:00)
[2018-02-25] MEDS ORDERED: NEOSTIGMINE 5 MG/5 ML SYRINGE IV PUSH ONE (12:00)
[2018-02-25] MEDS ORDERED: ROCURONIUM INJ 50 MG/5 ML SYRINGE IV PUSH ONE (12:00)
--- NOTE | 2018-02-25 13:25 | HHI.FPPN ---
Subjective Remarks Patient seen and discussed with Dr. Rosales. Patient and are aware that he will be going to the OR later today for open reduction and internal fixation of his left femoral fracture. He was having some neuropathy symptoms which resolved by lowering the foot of the bed and straightening his legs a little bit more. He declines anything for his bowels until after surgery. His pain is well controlled at this point. Objective Vitals Vital Signs Date Time Temp Pulse Resp B/P (MAP) Pulse Ox O2 Delivery O2 Flow Rate FiO2 02/25/18 08:00 98.0 79 18 153/94 (113) 96 02/25/18 03:45 97.8 56 18 120/80 (93) 98 02/25/18 00:00 97.1 56 18 115/77 (90) 96 02/24/18 19:40 97.6 66 18 142/89 (106) 97 02/24/18 16:00 98.0 70 12 133/91 (105) 100 I/O 02/24/18 02/24/18 02/24/18 02/25/18 02/25/18 02/25/18 06:59 14:59 22:59 06:59 14:59 22:59 Intake Total 960 ml 420 ml Output Total 800 ml Balance 160 ml 420 ml Intake Oral 960 ml 420 ml Output Urine Total 800 ml # Voids 3 2 Result Diagram: 02/22/18 1254 Objective Remarks O. CONSTITUTIONAL/GEN: normally nourished, in NAD. Left lower extremity in traction. Trapeze set up situated about the bed. LUNGS: Clear anteriorly, respiratory effort is normal. CARDIOVASCULAR: NRRR without murmur or gallop. No edema. GI/ABD: soft without masses, without organomegaly. NEURO: No focal deficits. SKIN: color normal, no rashes noted. MUSC: Toes are warm and sensation is intact on the left. Able to move toes. Good cap refill. Left hip significantly swollen and enlarged compared to right. PSYCH/MENTAL STATUS: Alert and oriented x 3. Procedures CT guided bone biopsy - 02/21/18 A/P Assessment and Plan 42-year-old male with no major past medical history presenting with: Discharge Planning Pending bx results and ortho recs. Bone bx results to be out this afternoon, will touch base w/pathology to make sure. DC back home to [place]. Problem List: (1) Subtrochanteric fracture of femur ICD Codes: S72.23XA - Displaced subtrochanteric fracture of unspecified femur, initial encounter for closed fracture Status: Acute Plan: X-ray showing subtrochanteric fracture of the femur, no clear history of trauma -Consulted orthopedics, appreciate assistance -Traction of left lower extremity -Biopsy not suggestive of malignancy -To OR this afternoon for ORIF left hip -Pain control with Toradol scheduled, morphine for pain scale as needed, Dilaudid as needed for breakthrough Fluids: NPO only at the moment Electrolytes: Monitor and replace PRN Nutrition: We will resume regular diet postoperatively. DVT: Lovenox 40 mg daily Problem Qualifiers (1) Subtrochanteric fracture of femur: Baylee Samaniego MD Feb 25, 2018 13:25
[2018-02-25] MEDS: ENOXAPARIN SODIUM 40 MG/0.4 ML SYRINGE SQ SCH (15:42)
[2018-02-25 16:00] VITALS: BP 138/82; PULSE 68; RESP 19; TEMP 98.2; O2SAT 97
[2018-02-25 19:40] VITALS: BP 144/88; PULSE 78; RESP 18; TEMP 98.3; O2SAT 96
[2018-02-25] MEDS ORDERED: ACETAMINOPHEN 1000 MG/100 ML 100 ML IV ONE (20:22)
[2018-02-25] MEDS ORDERED: ceFAZolin 2 GM PREMIX 50 ML ONE (20:28)
[2018-02-25] MEDS ORDERED: VANCOMYCIN HCL 1000 MG VIAL ONE (20:30)
[2018-02-25] MEDS ORDERED: MIDAZOLAM HCL 2 MG/2 ML VIAL ONE (22:37)
--- NOTE | 2018-02-25 23:22 | HHI.PR ---
cc: Carlie Winslow MD Immediate Post Op Note Procedure Date: Feb 25, 2018 Pre Op Diagnosis: Left pathologic subtrochanteric femur fracture Post Op Diagnosis: same Surgeon: Carlie Winslow Insurance Claims Clerk(s): Corbin Nye Procedure: IMN nail L femur Biopsy L femur Complications: none Specimen(s) removed: femoral reamings to pathology for r/o malignancy Estimated blood loss: 200cc Anesthesia: General Drains: None IVF Patient to: PACU Patient Condition: Good Implant/Devices: SEE IMPLANT LOG (if applicable) Date/Time of Procedure: SEE SURGICAL CARE RECORD Carlie Winslow MD Feb 25, 2018 23:22
[2018-02-25] MEDS ORDERED: Post-op Orders (for Pharmacy) XX ONE (23:30)
[2018-02-25] MEDS ORDERED: SODIUM CHLORIDE 0.9% FLUSH 10 ML FLUSH IV FLUSH PRN (23:30)
[2018-02-25] MEDS ORDERED: DO NOT ADM ANY ANTICOAGULANT DRUGS PRN (23:45)
--- NOTE | 2018-02-25 23:46 | RADRPT ---
EXAM DATE: 02/25/2018 11:43 PM EDT AGE/SEX: 42 years / Male INDICATIONS: Femoral nail. CLINICAL DATA: This is the patient's initial encounter. Patient reports that signs and symptoms have been present for 1 day and indicates a pain score of Nonresponsive. MEDICAL/SURGICAL HISTORY: None. None. COMPARISON: No prior exams available for comparison. FINDINGS: The patient has an IM nail across intertrochanteric fracture on the left. There is excellent alignmen t CONCLUSION: Status post IM nail of the femur fracture. Electronically signed by: Inder Mendiola MD 02/25/2018 11:45 PM EDT
[2018-02-25] MEDS ORDERED: *morphine SULFATE 10 MG/ML PERIprocedure ONLY ONE (23:54)
[2018-02-26] MEDS ORDERED: *morphine SULFATE 10 MG/ML PERIprocedure ONLY ONE (00:23)
[2018-02-26] MEDS: SODIUM CHLOR 0.9% 1000 ML INJ 1,000 ML IV SCH (00:27)
[2018-02-26] MEDS: HYDROmorphone HCL PF 2 MG/ML VIAL IV PUSH PRN ×4 (01:06→20:57)
[2018-02-26 04:00] VITALS: BP 124/76; PULSE 87; RESP 18; TEMP 97.6; O2SAT 98
[2018-02-26 07:15] LABS: HEMATOCRIT 38.8 % (39.0-51.0); HEMOGLOBIN 13.1 GM/DL (13.0-17.0); MEAN CELL VOLUME 90.2 FL (80.0-100.0); MEAN CORPUSCULAR HEMOGLOBIN 30.5 PG (27.0-34.0); MEAN CORPUSCULAR HGB CONC 33.8 % (32.0-36.0); MEAN PLATELET VOLUME 8.7 FL (7.0-11.0); PLATELET COUNT 266 TH/MM3 (150-450); RED BLOOD COUNT 4.31 MIL/MM3 (4.50-5.90); RED CELL DISTRIBUTION WIDTH 12.5 % (11.6-17.2); WHITE BLOOD COUNT 8.1 TH/MM3 (4.0-11.0)
--- NOTE | 2018-02-26 07:52 | PD.ORT.PN ---
Subjective Subjective Remarks Patient resting comfortably this morning. States his pain is relatively well controlled. Reports occasional muscle spasms but is able to move his leg with much better pain control. Objective Vitals Vital Signs Date Time Temp Pulse Resp B/P (MAP) Pulse Ox O2 Delivery O2 Flow Rate FiO2 02/26/18 04:00 97.6 87 18 124/76 (92) 98 02/26/18 00:30 79 12 146/80 (102) 95 Room Air 02/26/18 00:15 97.6 85 16 140/80 (100) 97 Room Air 02/26/18 00:00 86 12 148/79 (102) 98 Nasal Cannula 2 02/25/18 23:45 96 12 148/79 (102) 100 Nasal Cannula 2 02/25/18 23:36 97.4 100 12 117/79 (92) 100 Nasal Cannula 2 02/25/18 19:40 98.3 78 18 144/88 (106) 96 02/25/18 16:00 98.2 68 19 138/82 (100) 97 02/25/18 12:00 98.3 81 19 125/80 (95) 98 02/25/18 08:00 98.0 79 18 153/94 (113) 96 I/O 02/25/18 02/25/18 02/25/18 02/26/18 02/26/18 02/26/18 07:00 15:00 23:00 07:00 15:00 23:00 Intake Total 420 ml 2020 ml Output Total 850 ml 150 ml Balance 420 ml -850 ml 1870 ml Intake Oral 420 ml 420 ml Other 1600 ml Output Urine Total 850 ml 0 ml Estimated Blood Loss 150 ml # Voids 2 3 Result Diagram: 02/26/18 0600 Objective Remarks Awake, alert, no acute distress Left lower extremity: Thigh compartments are swollen but remained compressible with no tenderness to palpation. Dressings are intact without significant drainage. Patient is neurovascularly intact distally. Brisk cap refill. Assessment & Plan Assessment and Plan 42-year-old gentleman, postop day 1 status post intramedullary nail of his left subtrochanteric femur fracture 1. Partial weightbearing 50% left lower extremity. 2. Physical therapy for mobilization. 3. Lovenox for DVT prophylaxis 4. Patient is planning to return to [place] upon discharge. I discussed with the patient that he will need to follow up with an orthopedic surgeon within the next 2-3 weeks. Carlie Winslow MD Feb 26, 2018 07:52
[2018-02-26 08:00] VITALS: BP 142/86; PULSE 79; RESP 16; TEMP 97.1; O2SAT 94
[2018-02-26] MEDS: DOCUSATE SODIUM 50 MG/SENNA 8.6 MG TAB PO SCH ×3 (09:00→20:56)
[2018-02-26] MEDS ORDERED: IBUPROFEN 400 MG TAB PO PRN (09:30)
[2018-02-26] MEDS ORDERED: ACETAMINOPHEN/HYDROcodone 325 MG/5 MG TAB PO PRN (09:30)
[2018-02-26] MEDS: SODIUM CHLORIDE 0.9% FLUSH 10 ML FLUSH IV FLUSH SCH ×2 (10:31→20:56)
--- NOTE | 2018-02-26 10:34 | HHI.FPPN ---
Subjective Remarks Postoperative day #1 status post IMN nail left femur for left femur fracture. Patient doing well. No problems eating or drinking. Passing gas. No problems with urination. Has not a bowel movement since . Patient has Angela-Colace scheduled daily since 02/20. However patient has been refusing for the past couple days. States that he would like to go on his own/ naturally. Has minimal pain. Patient is would like medical records to be able to take him to [place]. States that they were told that they may be able to go home tomorrow. (Malorie Rosales MD R1) Objective Vitals Vital Signs Date Time Temp Pulse Resp B/P (MAP) Pulse Ox O2 Delivery O2 Flow Rate FiO2 02/26/18 08:00 97.1 79 16 142/86 (104) 94 02/26/18 04:00 97.6 87 18 124/76 (92) 98 02/26/18 00:30 79 12 146/80 (102) 95 Room Air 02/26/18 00:15 97.6 85 16 140/80 (100) 97 Room Air 02/26/18 00:00 86 12 148/79 (102) 98 Nasal Cannula 2 02/25/18 23:45 96 12 148/79 (102) 100 Nasal Cannula 2 02/25/18 23:36 97.4 100 12 117/79 (92) 100 Nasal Cannula 2 02/25/18 19:40 98.3 78 18 144/88 (106) 96 02/25/18 16:00 98.2 68 19 138/82 (100) 97 02/25/18 12:00 98.3 81 19 125/80 (95) 98 I/O 02/25/18 02/25/18 02/25/18 02/26/18 02/26/18 02/26/18 07:00 15:00 23:00 07:00 15:00 23:00 Intake Total 420 ml 2020 ml Output Total 850 ml 150 ml Balance 420 ml -850 ml 1870 ml Intake Oral 420 ml 420 ml Other 1600 ml Output Urine Total 850 ml 0 ml Estimated Blood Loss 150 ml # Voids 2 3 (Malorie Rosales MD R1) Result Diagram: 02/26/18 0600 Objective Remarks O. CONSTITUTIONAL/GEN: normally nourished, in NAD. Left lower extremity in traction. Trapeze set up situated about the bed. LUNGS: Clear anteriorly, respiratory effort is normal. CARDIOVASCULAR: NRRR without murmur or gallop. No edema. GI/ABD: soft without masses, without organomegaly. NEURO: No focal deficits. SKIN: color normal, no rashes noted. MUSC: Toes are warm and sensation is intact on the left. Able to move toes. Good cap refill. Significant improvement noted in the left hip in terms of swelling. Bandages at the sites of incision at the left hip and the lower lateral knee are clean dry and intact. PSYCH/MENTAL STATUS: Alert and oriented x 3. Procedures CT guided bone biopsy - 02/21/18 Left IM and nail femur -02/25/18 (Malorie Rosales MD R1) A/P Assessment and Plan 42-year-old male with no major past medical history admitted for repair of left subtrochanteric femur fracture. His postoperative day #1 status post IM nail left femur. Bone biopsy to rule out malignancy done on 02/21. Plan to initiate PT today with partial weightbearing 50% of the left lower extremity. Per patient report today, states that he was told that he would be discharged tomorrow. Will await or the recommendations in the meantime. Discharge Planning Plan for possible discharge tomorrow, pending orthopedic recommendations (Malorie Rosales MD R1) Attending Attestation Patient seen and examined. Case reviewed and discussed with the resident team. Agree with plan of care as discussed with me and documented in the resident note. (Baylee Samaniego MD) Problem List: (1) Subtrochanteric fracture of femur ICD Codes: S72.23XA - Displaced subtrochanteric fracture of unspecified femur, initial encounter for closed fracture Status: Acute Plan: X-ray showing subtrochanteric fracture of the femur, no clear history of trauma -Consulted orthopedics, appreciate assistance -Traction of left lower extremity -Biopsy not suggestive of malignancy -PT -Oral pain medications of Motrin and [place] were added today in addition to Dilaudid for breakthrough and morphine in case unable to take p.o. Fluids: P.o. Electrolytes: Monitor and replace PRN Nutrition: Regular diet DVT: Lovenox 40 mg daily (Malorie Rosales MD R1) Problem Qualifiers (1) Subtrochanteric fracture of femur: Malorie Rosales MD R1 Feb 26, 2018 10:34 Baylee Samaniego MD Feb 26, 2018 11:18
[2018-02-26] MEDS: ACETAMINOPHEN/HYDROcodone 325 MG/7.5 MG TAB PO PRN ×3 (10:47→21:00)
[2018-02-26 12:00] VITALS: BP 129/76; PULSE 84; RESP 16; TEMP 98; O2SAT 99
[2018-02-26 16:00] VITALS: BP 125/70; PULSE 88; RESP 16; TEMP 98.3; O2SAT 100
--- NOTE | 2018-02-26 16:28 | HHI.FF ---
Face to Face Verification Diagnosis: (1) Subtrochanteric fracture of femur Physical Therapy Order: Evaluate and Treat Home Health Nursing Order: Medical education Nursing assessment with vital signs I have seen patient Florentin Vázquez on 02/26/18. My clinical findings support the need for the requested home health care services because: Ltd mobility - disease progression High risk of falls I certify that my clinical findings support that this patient is homebound because: Post-op weakness Unsteady gait/balance Warren Silver MD R2 Feb 26, 2018 16:28
[2018-02-26] MEDS ORDERED: WALKER WHEELS/F1 MIS (16:29)
[2018-02-26] MEDS: ENOXAPARIN SODIUM 40 MG/0.4 ML SYRINGE SQ SCH (16:40)
[2018-02-26 20:20] VITALS: BP 122/66; PULSE 87; RESP 18; TEMP 97.7; O2SAT 97
[2018-02-26 23:10] VITALS: BP 124/59; PULSE 83; RESP 18; TEMP 98.6; O2SAT 98
[2018-02-27] MEDS: ACETAMINOPHEN/HYDROcodone 325 MG/7.5 MG TAB PO PRN ×2 (04:21→08:32)
[2018-02-27 04:38] VITALS: BP 135/67; PULSE 83; RESP 18; TEMP 98; O2SAT 97
[2018-02-27 08:00] VITALS: BP 103/59; PULSE 79; RESP 18; TEMP 99; O2SAT 96
[2018-02-27] MEDS: DOCUSATE SODIUM 50 MG/SENNA 8.6 MG TAB PO SCH (08:32)
[2018-02-27] MEDS: SODIUM CHLORIDE 0.9% FLUSH 10 ML FLUSH IV FLUSH SCH (08:36)
[2018-02-27] MEDS ORDERED: IBUP1TAB7 PO (09:22)
[2018-02-27] MEDS ORDERED: OXYC1TAB63 PO (09:22)
--- NOTE | 2018-02-27 09:28 | HHI.FPPN ---
Subjective Remarks Patient states his left hip is more painful than yesterday, thinks it's because he exerted himself too much w/PT. Pain not well controlled w/norco. Told patient we would try percocet today. Vitals stable. Had 1 BM. Appetite good. (Malorie Rosales MD R1) Objective Vitals Vital Signs Date Time Temp Pulse Resp B/P (MAP) Pulse Ox O2 Delivery O2 Flow Rate FiO2 02/27/18 05:32 18 02/27/18 04:38 98.0 83 18 135/67 (89) 97 02/26/18 23:50 Room Air 02/26/18 23:10 98.6 83 18 124/59 (80) 98 02/26/18 21:27 18 02/26/18 20:20 97.7 87 18 122/66 (84) 97 02/26/18 16:00 98.3 88 16 125/70 (88) 100 02/26/18 12:00 98.0 84 16 129/76 (93) 99 I/O 02/26/18 02/26/18 02/26/18 02/27/18 02/27/18 02/27/18 07:00 15:00 23:00 07:00 15:00 23:00 Intake Total 2020 ml 1840 ml 100 ml 460 ml Output Total 150 ml 1400 ml Balance 1870 ml 440 ml 100 ml 460 ml Intake Oral 420 ml 740 ml 360 ml IV Total 1100 ml 100 ml 100 ml Other 1600 ml Output Urine Total 0 ml 1400 ml Estimated Blood Loss 150 ml # Voids 3 2 # Bowel Movements 1 0 (Malorie Rosales MD R1) Result Diagram: 02/26/18 0600 Objective Remarks O. CONSTITUTIONAL/GEN: normally nourished, in NAD. Left lower extremity in traction. Trapeze set up situated about the bed. LUNGS: Clear anteriorly, respiratory effort is normal. CARDIOVASCULAR: NRRR without murmur or gallop. No edema. GI/ABD: soft without masses, without organomegaly. NEURO: No focal deficits. SKIN: color normal, no rashes noted. MUSC: Toes are warm and sensation is intact on the left. Able to move toes. Good cap refill. Significant improvement noted in the left hip in terms of swelling. Bandages at the sites of incision at the left hip and the lower lateral knee are clean dry and intact. PSYCH/MENTAL STATUS: Alert. Procedures CT guided bone biopsy - 02/21/18 Left IM and nail femur -02/25/18 (Malorie Rosales MD R1) A/P Assessment and Plan 42-year-old male with no major past medical history admitted for repair of left subtrochanteric femur fracture. His postoperative day #1 status post IM nail left femur. Bone biopsy to rule out malignancy done on 02/21. Plan to initiate PT today with partial weightbearing 50% of the left lower extremity. Per patient report today, states that he was told that he would be discharged tomorrow. Will await or the recommendations in the meantime. Discharge Planning Dc today (Malorie Rosales MD R1) Attending Attestation Patient seen and examined. Case reviewed and discussed with the resident team. Agree with plan of care as discussed with me and documented in the resident note. (Baylee Samaniego MD) Problem List: (1) Subtrochanteric fracture of femur ICD Codes: S72.23XA - Displaced subtrochanteric fracture of unspecified femur, initial encounter for closed fracture Status: Acute Plan: X-ray showing subtrochanteric fracture of the femur, no clear history of trauma -Consulted orthopedics, appreciate assistance - plan for f/u in 2 weeks - xarelto daily FOR 2 WEEKS - wheeled walker - PT - Motrin and percocet for pain, give for a couple days (Malorie Rosales MD R1) Problem Qualifiers (1) Subtrochanteric fracture of femur: Malorie Rosales MD R1 Feb 27, 2018 09:28 Baylee Samaniego MD Feb 27, 2018 12:18
[2018-02-27] MEDS ORDERED: XARE10TA PO (09:34)
--- NOTE | 2018-02-27 09:36 | HHI.DCPOC ---
Discharge Care Plan Goals to Promote Your Health * To prevent worsening of your condition and complications * To maintain your health at the optimal level XARELTO DAILY FOR 14 DAYS FOR CLOT PREVENTION. FOLLOW UP W/PRIMARY CARE. CONTINUE PHYSICAL THERAPY. Directions to Meet Your Goals Take your medications as prescribed Follow your dietary instruction Follow activity as directed Keep your appointments as scheduled Take your immunizations and boosters as scheduled If your symptoms worsen call your PCP, if no PCP go to Urgent Care Center or Emergency Room Smoking is Dangerous to Your Health. Avoid second hand smoke Call the 24-hour hour crisis hotline for domestic abuse at Malorie Rosales MD R1 Feb 27, 2018 09:36
[2018-02-27] MEDS ORDERED: oxyCODONE/ACETAMINOPHEN 5 MG/325 MG TAB PO PRN (11:00)
[2018-02-27] MEDS ORDERED: oxyCODONE/ACETAMINOPHEN 10 MG/325 MG TAB PO PRN (11:00)
[2018-02-27 12:00] VITALS: BP 126/70; PULSE 76; RESP 18; TEMP 98.8; O2SAT 96
[2018-02-27 13:53] VITALS: RESP 18
--- NOTE | 2018-03-06 13:05 | HHI.DS ---
Discharge Summary Admission Date Feb 20, 2018 at 15:42 Discharge Date: Feb 26, 2018 Admitting Diagnosis Femur fracture (1) Subtrochanteric fracture of femur Plan: X-ray showing subtrochanteric fracture of the femur, no clear history of trauma -Consulted orthopedics, appreciate assistance - plan for f/u in 2 weeks - xarelto daily FOR 2 WEEKS - wheeled walker - PT - Motrin and percocet for pain, give for a couple days ICD Codes: S72.23XA - Displaced subtrochanteric fracture of unspecified femur, initial encounter for closed fracture Status: Acute Consultants Orthopedics - Dr. Winslow Procedures CT guided bone biopsy - 02/21/18 Left IM and nail femur -02/25/18 Brief History 42-year-old male with no major past medical history presenting with left hip pain. He was swimming in the ocean with his , jumping up and down over the waves, when suddenly he felt as though something hit his left leg. He had immediate pain and could not bear weight on the left lower extremity. Lifeguards evaluated him and thought it was a muscle sprain, however he was unable to bear weight after resting and pain did not subside, so he and his got into the car and brought him to the ER. Other than the pain in his left leg he feels well. No history of fractures. Imaging Last Impressions Femur X-Ray 02/25/18 0000 Signed Impressions: CONCLUSION: Status post IM nail of the femur fracture. Bone Biopsy CT 02/21/18 0000 Signed Impressions: CONCLUSION: 1. Successful CT guided 16-gauge core biopsy of the left proximal femoral lyti c lesion. Lower Extremity CT 02/20/18 0000 Signed Impressions: CONCLUSION: 1. 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 Hip and Pelvis X-Ray 02/20/18 0000 Signed Impressions: CONCLUSION: Subtrochanteric fracture of the left femoral shaft with suspected underlying cy stic or lytic lesion indicative of a potential pathologic fracture. PE at Discharge CONSTITUTIONAL/GEN: normally nourished, in NAD. Left lower extremity in traction. Trapeze set up situated about the bed. LUNGS: Clear anteriorly, respiratory effort is normal. CARDIOVASCULAR: NRRR without murmur or gallop. No edema. GI/ABD: soft without masses, without organomegaly. NEURO: No focal deficits. SKIN: color normal, no rashes noted. MUSC: Toes are warm and sensation is intact on the left. Able to move toes. Good cap refill. Significant improvement noted in the left hip in terms of swelling. Bandages at the sites of incision at the left hip and the lower lateral knee are clean dry and intact. PSYCH/MENTAL STATUS: Alert. Hospital Course 42 yo male with no major PMH presenting after a non-traumatic left hip fracture. Orthopedics was consulted who recommended bone biopsy first to rule out cancer. This was performed 02/21 and showed no evidence of malignancy. Surgical repair of the broken hip was performed on 02/25, and additional bone fragments were sent to pathology at that time. Results pending at time of discharge. He had an uncomplicated postoperative course and was stable for discharge home with home health PT on postoperative day 1. Pt Condition on Discharge: Stable Discharge Disposition: Discharge Home Discharge Instructions DIET: Follow Instructions for: As Tolerated, No Restrictions Activities you can perform: Partial Weight Bearing Follow up Referrals: Orthopedics - 2 Weeks PCP Follow-up - 1 Week New Medications: Ibuprofen (Ibuprofen) 800 Mg Tab 800 MG PO Q8H PRN for PAIN, #30 TAB 0 Refills Oxycodone-Acetaminophen (Oxycodone-Acetaminophen) 5-325 mg Tab 1-2 TAB PO Q6H PRN for PAIN, #30 TAB 0 Refills Rivaroxaban (Xarelto) 10 Mg Tab 10 MG PO DAILY for Blood Clot Prevention, #14 TAB 0 Refills Walker with Front Wheels (Walker with Front Wheels) 1 Mis Mis EA .XX DIRECTED, #1 0 Refills Warren Silver MD R2 Mar 06, 2018 13:05
--- NOTE | 2018-03-06 15:38 | PD.OP ---
cc: Carlie Winslow MD Operative Report Date of Surgery: Feb 25, 2018 Preoperative Diagnosis: Left pathologic subtrochanteric femur fracture Postoperative Diagnosis: same Procedure: Intramedullary nail left subtrochanteric pathologic femur fracture Biopsy left femur Anesthesia: gen Surgeon: Carlie Winslow Supervisor Claims(s): none Operation and Findings: EBL: 200cc Specimens: femoral reamings to pathology Complications: none Indications for procedure: 42yo male who presented to the ED with acute onset of left hip/thigh pain. Patient was found to have non-traumatic left subtrochanteric pathologic femur fracture. Given the proximal femoral lesion and the non-traumatic mechanism of injury, recommendation for CT guided biopsy by IR to ensure this was not a malignancy. After the biopsy returned without malignancy, recommendation for intramedullary nail of his left subtrochanteric femur fracture. Risks of surgery were discussed with the patient. At this time, he has consented to the above-mentioned procedure. Description of procedure: Patient was brought back to the operating room where general anesthesia then ensued. Patient was then placed carefully supine on the operating room fracture table with all bony prominences well padded. Preoperative antibiotics were given within one hour of incision. Patient was prepped and draped in standard sterile fashion. Timeout was performed to identify the correct patient, side, site and procedure to be performed. A 2 inch incision was then made just proximal and posterior to the tip of the greater trochanter with sharp dissection through the skin, subcutaneous tissue and fascia. A guidewire was then placed into the tip of the greater trochanter on both AP and lateral radiographs and advanced to the lesser trochanteric region. An opening reamer was then used to allow access to the femoral canal and advanced to the lesser trochanteric region. The fracture was then reduced with traction and rotation through the fracture table. A ball-tipped guidewire was then placed into the greater trochanter and advanced passed the fracture site and into the distal femur just proximal to the physeal scar. This was measured and then subsequently reamed, with the fracture held reduced, until there was good cortical chatter, at 11.5mm. After the first reamer was passed, the reamings were placed onto a Telfa sponge and sent to pathology for evaluation for malignancy. An appropriate length Synthes TFN long 10mm nail was then placed into the greater trochanter over the ball-tipped guidewire. This was advanced into appropriate position on AP and lateral radiographs. The guidewire was removed. The guide for the proximal locking screw was then inserted into the insertion handle and jig. A small lateral incision was made through skin, subcutaneous tissue and fascia to all the guide to sit against the lateral aspect of the proximal femur. A guidewire was then placed through the guide into the femoral neck and head. This was verified to be in a center- center position in the femoral head on AP and lateral radiographs. This was subsequently measured, drilled, and placed. The guide was removed and the proximal locking screw tightened down. The fracture was found to be in acceptable alignment and rotation. At that time, the distal locking screws were then placed with the use of perfect augustine technique. A small lateral incision was made through the skin, subcutaneous tissue and fascia. These were drilled, measured, and appropriate length screws placed. Radiographs verified these were in appropriate position. The insertion handle was removed. Final radiographs demonstrated the fracture was in acceptable alignment and the hardware was in appropriate position. All incisions were irrigated with normal saline laden with gentamicin. The deep fascia was closed with #1 Vicryl. The subcutaneous tissue was closed with 2-0 Vicryl sutures and the skin closed with yue. Sterile dressings were applied. The patient was transitioned back to his hospital bed and awoken from general anesthesia. Disposition: PWAnderson 50% Carlie Clark MD Mar 06, 2018 15:38
== END 2018-02-27 15:18 | disposition home or self-care (01) | DRG 479 ==
LOC: NEPD 12:56 → NEDA 15:42 → N06A 17:09
PROVIDERS: ADMIT Family Medicine; ATTEND Family Medicine
PROC: 0QB93ZX Excision of Left Femoral Shaft, Percutaneous Approach, Diagnostic (ICD-10-PCS; principal; 2018-02-21)
PROC: 0QS906Z Reposition Left Femoral Shaft with Intramedullary Internal Fixation Device, Open Approach (ICD-10-PCS; 2018-02-25)
PROC: 0QB90ZX Excision of Left Femoral Shaft, Open Approach, Diagnostic (ICD-10-PCS; 2018-02-25)
DX: M84.452A Pathological fracture, left femur, initial encounter for fracture (principal); D72.829 Elevated white blood cell count, unspecified; Y93.11 Activity, swimming; Y92.832 Beach as the place of occurrence of the external cause
CPT/HCPCS: 20225; 73502; 73552; 73700; 76000; 77012; 80048; 85025; 85027; 85610; 85730; 86850; 86900; 86901; 88305; 88307; 88311; 94150; 96361; 96374; 96375; 99152; 99153; C1713; J0131; J0690; J1100; J1170; J1650; J1885; J2250; J2270; J2405; J2710; J3010; J3370; J7030; J7120